=== PATIENT | male | born 1995 | race American Indian/Alaskan Native ===

== ENCOUNTER 2021-05-21 16:32 | Emergency (ER) | payer SELFPAY ==
--- NOTE | 2021-05-21 17:41 | Emergency Department Report ---
ED Male HPI - General Chief complaint: Urogenital-Male Stated complaint: SMALL AMOUNT OF BLOOD IN URINE Time Seen by Provider: 05/21/21 17:12 Source: patient Mode of arrival: Ambulatory Limitations: No Limitations - History of Present Illness Initial comments: 25-year-old male presents to the ER today with complaints of hematuria. Patient states that he noticed it 3 days ago. He states that it was towards the end of his stream. He reports mild dysuria today and urinary urgency. He denies any associated urinary frequency, hesitancy, low abdominal or back pain. He denies any penile discharge, testicular pain or swelling. He denies similar symptoms in the past. He denies any fever or chills. He denies any new sexual partners and denies any concern for STDs. Complaint: other (Hematuria0) -: days(s) (3 days ago) - Related Data Previous Rx's Medication Instructions Recorded Last Taken Type Sulfamethoxazole/Trimethoprim 1 each PO BID #20 tablet 05/21/21 Unknown Rx [Bactrim DS TAB] Allergies Allergy/AdvReac Type Severity Reaction Status Date / Time bee venom protein (honey bee) AdvReac Unknown Verified 05/21/21 16:55 bakari AdvReac Unknown Verified 05/21/21 16:55 shellfish derived AdvReac Unknown Verified 05/21/21 16:55 ED Review of Systems ROS: Stated complaint: SMALL AMOUNT OF BLOOD IN URINE Other details as noted in HPI Comment: All other systems reviewed and negative Genitourinary: urgency, dysuria, hematuria ED Past Medical Hx - Medications Home Medications: Home Medications Medication Instructions Recorded Confirmed Last Taken Type Sulfamethoxazole/Trimethoprim 1 each PO BID #20 tablet 05/21/21 Unknown Rx [Bactrim DS TAB] ED Physical Exam - General Limitations: No Limitations General appearance: alert, in no apparent distress - Head Head exam: Present: atraumatic, normocephalic, normal inspection - Eye Eye exam: Present: normal appearance, PERRL, EOMI Pupils: Present: normal accommodation - Neck Neck exam: Present: normal inspection, full ROM - Respiratory Respiratory exam: Present: normal lung sounds bilaterally. Absent: respiratory distress, wheezes, rales, rhonchi, stridor - Cardiovascular Cardiovascular Exam: Present: regular rate, normal rhythm, normal heart sounds - GI/Abdominal GI/Abdominal exam: Present: soft. Absent: distended, tenderness, guarding, rebound - Neurological Exam Neurological exam: Present: alert, oriented X3, CN II-XII intact, normal gait - Psychiatric Psychiatric exam: Present: normal affect, normal mood - Skin Skin exam: Present: intact ED Course Vital Signs 05/21/21 05/21/21 16:55 18:52 Temperature 98.2 F Pulse Rate 58 L Respiratory 18 16 Rate Blood Pressure 119/75 [Left] O2 Sat by Pulse 99 100 Oximetry ED Medical Decision Making - Medical Decision Making 25-year-old male presents to the ER today with complaints of hematuria. Patient states that he noticed it 3 days ago. He states that it was towards the end of his stream. He reports mild dysuria today and urinary urgency. He denies any associated urinary frequency, hesitancy, low abdominal or back pain. He denies any penile discharge, testicular pain or swelling. He denies similar symptoms in the past. He denies any fever or chills. He denies any new sexual partners and denies any concern for STDs. 190: Urinalysis positive for UTI. Patient states that he is only had 1 sexual partner, and he is not concerned for STDs and does not want prophylactic GC treatment. Patient will be started on Bactrim for his UTI. Informed him that if his symptoms persist despite he will be given referral to urology as well as referral to local PCP. Informed patient that if his symptoms worsens to return to the ER. Patient expressed understanding for instructions and agree with plan. Patient stable at time of discharge. Critical care attestation.: If time is entered above; I have spent that time in minutes in the direct care of this critically ill patient, excluding procedure time. ED Disposition Clinical Impression: UTI (urinary tract infection) Disposition: HOME / SELF CARE / HOMELESS Is pt being admited?: No Does the pt Need Aspirin: No Condition: Stable Instructions: Urinary Tract Infection, Adult, [id number] Additional Instructions: I recommend that you increase your water intake. Take the Bactrim as prescribed until completion. Follow-up with your PCP or the urologist listed on your discharge instructions especially if symptoms persist after antibiotics. Return to the ER if your symptoms changes or worsens in any way. Prescriptions: Sulfamethoxazole/Trimethoprim [Bactrim DS TAB] 1 each PO BID #20 tablet Referrals: PRIMARY CARE, [Primary Care Provider] - 3-5 Days KENDRA MCCOY MD [Staff Physician] - 3-5 Days (urologist) Time of Disposition: 19:06
[2021-05-21 18:50] LABS: Bilirubin,Urine NEG (Negative); Blood,Urine LG (Negative); Color,Urine Yellow (Yellow); Mucus,Urine FEW /HPF; Urobilinogen,Urine < 2.0 mg/dL (<2.0)
[2021-05-21 18:51] LABS: WBC,Urine > 182.0 /HPF (0.0-6.0)
[2021-05-21 19:20] VITALS: BP 109/68
== END 2021-05-21 19:20 | disposition home or self-care (01) ==
LOC: ED 16:32
DX: N39.0 Urinary tract infection, site not specified (principal); Z91.013 Allergy to seafood; Z91.018 Allergy to other foods; Z91.030 Bee allergy status
CPT/HCPCS: 81001; 99283